=== PATIENT | male | born 1975 | race Caucasian/White ===

== ENCOUNTER 2018-02-12 12:23 | Emergency (ER) | payer OTHER ==
[2018-02-12] MEDS ORDERED: RANITIDINE 50 MG/2 ML VIAL IVP ONE (12:43)
[2018-02-12] MEDS ORDERED: methylPREDNISolone SOD SUCC 125 MG/2 ML VIAL IVP ONE (12:43)
--- NOTE | 2018-02-12 13:02 | EDPHY ---
H & P Time Seen by Provider: 02/12/18 12:40 HPI/ROS: CHIEF COMPLAINT: Allergic reaction HISTORY OF PRESENT ILLNESS: The patient is a 42-year-old male with a history of peanut allergy presents emergency department allergic reaction. Patient 8 food from [employer]. He did not note that there was peanut sauce in the salad. He subsequently developed a skin rash and swelling in his throat. He felt mildly short of breath. He did not have his EpiPen. REVIEW OF SYSTEMS: My complete review of systems is negative except as mentioned in the HPI. Past Medical/Surgical History: Includes allergic reaction Smoking Status: Never smoked Physical Exam: Vitals noted GENERAL: Well-appearing, in no acute distress, alert. HEENT: Eyes normal to inspection, normal pharynx, no signs of dehydration. No swelling. Uvula midline. NECK: No thyromegaly, no lymphadenopathy, supple. No stridor. RESPIRATORY: Clear to auscultation bilaterally, no rales, rhonchi or wheezing. Normal CVS: Regular rate and rhythm, no rubs, murmurs, or gallops. ABDOMEN: Soft, nontender, nondistended, no organomegaly. BACK: Normal to inspection, no CVA tenderness. SKIN: Normal color, no rash, warm, dry. No pallor. No hives. EXTREMITIES: No pedal edema, no calf tenderness, no Homans sign or cords, no joint swelling. NEURO/PSYCH: Alert and oriented x3, normal mood and affect, normal motor sensory exam. No obvious cranial nerve deficit. Constitutional: Initial Vital Signs Temperature (C) 36.5 C 02/12/18 12:29 Heart Rate 58 L 02/12/18 12:29 Respiratory Rate 16 02/12/18 12:29 Blood Pressure 132/84 H 02/12/18 12:29 O2 Sat (%) 96 02/12/18 12:29 O2 Delivery Mode Room Air Allergies/Adverse Reactions: tree nut [Nuts] Allergy (Verified 02/12/18 12:28) Home Medications: Medication Instructions Recorded Prevacid 02/12/18 Medical Decision Making ED Course/Re-evaluation: In the emergency department IV was placed. Patient was given Solu-Medrol 125 mg IV, Benadryl 50 mg IV and ranitidine 50 mg IV. 1405: Pt is doing well. No SOB. No wheezing. No rash. On recheck the patient was doing well. He had no respiratory distress. The patient was given warnings prior to leaving. He will return with worsening symptoms. Differential Diagnosis: My differential includes but is not limited to allergic reaction, anaphylaxis, food antigen exposure - Data Points Medications Given: Discontinued Medications Diphenhydramine HCl (Benadryl Injection) 50 mg IVP EDNOW ONE Stop: 02/12/18 12:44 Last Admin: 02/12/18 12:53 Dose: Not Given Methylprednisolone Sodium Succinate (Solu-Medrol) 125 mg IVP EDNOW ONE Stop: 02/12/18 12:44 Last Admin: 02/12/18 12:52 Dose: 125 mg Ranitidine HCl (Zantac) 50 mg IVP EDNOW ONE Stop: 02/12/18 12:44 Last Admin: 02/12/18 12:52 Dose: 50 mg Departure - Departure Disposition: Home, Routine, Self-Care Clinical Impression: Allergic reaction Qualifiers: Encounter type: initial encounter Qualified Code(s): T78.40XA - Allergy, unspecified, initial encounter Condition: Good Instructions: Food Allergy (ED), Peanut Allergy (ED) Additional Instructions: Return with increasing shortness of breath, throat swelling or any other concerns. Referrals: Any Harper MD [Medical Doctor] - 2-3 days, if not improved
[2018-02-12 14:56] VITALS: BP 130/90
[2018-02-12] MEDS ORDERED: methylPREDNISolone SOD SUCC 125 MG/2 ML VIAL ONE (15:02)
[2018-02-12] MEDS ORDERED: RANITIDINE 50 MG/2 ML VIAL ONE (15:02)
== END 2018-02-12 14:56 | disposition home or self-care (01) ==
DX: T78.1XXA Other adverse food reactions, not elsewhere classified, initial encounter (principal)
CPT/HCPCS: 96374; J1200; J2780; J2930